=== PATIENT | male | born 1995 | race Caucasian/White ===

== ENCOUNTER 2017-07-11 19:52 | Emergency (ER) | payer OTHER ==
[~2017-07-11] VITALS: Ht 200.7 cm; Wt 120.2 kg
[2017-07-11 20:04] VITALS: BP 135/70
[2017-07-11] MEDS ORDERED: HYDROcodone/APAP 10/325 1 TAB TABLET PO ONE (20:15)
[2017-07-11] MEDS ORDERED: IBUP800T19 PO (20:45)
[2017-07-11] MEDS ORDERED: HYDR-971 PO (20:45)
--- NOTE | 2017-07-11 20:46 | PHYS DOC ---
Past History Past Medical History: No Pertinent History Past Surgical History: No Surgical History Alcohol Use: Occasionally Drug Use: None Adult General Chief Complaint Chief Complaint: LOWEREXTREMITY INJURY HPI HPI Patient is a 21-year-old male who presents with family after a right ankle injury playing football. Patient denies other injury. He denies previous right ankle injury or problem. His ankle was rolled and then another player stepped on it. He presents with his own crutches. Review of Systems Review of Systems Musculoskeletal: Denies injury other than the right ankle Current Medications Current Medications Current Medications Medications (Trade) Dose Ordered Sig/[place] Start Time Stop Time Status Last Admin Dose Admin Acetaminophen/ Hydrocodone Bitart (Lortab 10/325) 1 tab 1X ONCE 07/11/17 20:15 07/11/17 20:35 DC 07/11/17 20:13 1 TAB Allergies Allergies Allergies Coded Allergies Type Severity Reaction Last Updated Verified levofloxacin Allergy Intermediate 07/11/17 Yes Physical Exam Physical Exam Constitutional: Well developed, well nourished, no acute distress, non-toxic appearance. [] HENT: Normocephalic, atraumatic, bilateral external ears normal, nose normal. [ ] Eyes: conjunctiva normal, no discharge. [] Neck: Normal range of motion,no stridor. [] Skin: Warm, dry, no erythema, no rash. [] Extremities: Right lower: Knee without deformity, swelling, or tenderness. No tenderness of the proximal fibula. Significant swelling of the right ankle, especially the lateral aspect. There is tenderness over the lateral aspect of the distal fibula. There is some swelling of the anterior lateral midfoot. Toes are unremarkable. Neurologic: Alert and oriented X 3, normal motor function, no focal deficits noted. [] Current Patient Data Vital Signs Vital Signs Date Time Temp Pulse Resp B/P (MAP) Pulse Ox O2 Delivery O2 Flow Rate FiO2 07/11/17 20:04 98.2 96 22 99 Room Air EKG EKG [] Radiology/Procedures Radiology/Procedures Three-view x-ray of the right ankle and three-view x-ray of the right foot read by me. No acute bony abnormality.[] Course & Med Decision Making Course & Med Decision Making Pertinent Labs and Imaging studies reviewed. (See chart for details) 21-year-old male presents with a right ankle injury which occurred while playing football. No fractures on the x-ray. He was treated with Robin wrap, air splint. He has crutches already. He has follow-up in place with the team doctor. See instructions for plan. [] Dragon Disclaimer Dragon Disclaimer This chart was dictated in whole or in part using Voice Recognition software in a busy, high-work load, and often noisy Emergency Department environment. It may contain unintended and wholly unrecognized errors or omissions. Departure Departure: Impression: Primary Impression: Right ankle sprain Disposition: HOME, SELF-CARE Condition: STABLE Referrals: STEPHANIE GIBSON MD (PCP) Patient Instructions: Ankle Sprain, [id number] Additional Instructions: For 2-3 days, as much as possible, elevate, ice. Keep it wrapped with an Robin wrap for compression, just snug, not too tight. Use crutches and stay off of it for 2 or 3 days, then as tolerated or as recommended by Dr. Cordoba. Ibuprofen 800 mg every 6-8 hours around the clock for pain and swelling. If needed, hydrocodone for more severe pain. You may combine this with ibuprofen. Follow-up with Dr. Cordoba early next week. Scripts Hydrocodone Bit/Acetaminophen (NORCO 5-325 TABLET) 1 Each Tablet 1-2 TAB PO PRN Q6HRS Y for PAIN, #10 TAB 0 Refills Prov: JESSICA MENSAH MD 07/11/17 Ibuprofen (IBUPROFEN) 800 Mg Tablet 1 TAB PO TID for ankle sprain, #30 TAB Prov: JESSICA MENSAH MD 07/11/17 JESSICA MENSAH MD Jul 11, 2017 20:45
--- NOTE | 2017-07-12 08:49 | RAD ---
Examination: 3 views of the right foot History: History of old right ankle and foot Comparison: None available Findings: The alignment of the tarsal bones grossly appears unremarkable. The metatarsophalangeal joints, tarsometatarsal joints, tarsal joints joint grossly appears unremarkable. Impression No acute osseous findings.
--- NOTE | 2017-07-12 08:51 | RAD ---
Examination: 3 views of the right ankle History: History of right ankle injury Comparison: None available Findings: The alignment of the ankle mortise grossly appears unremarkable. There is no acute fracture identified. Moderate soft tissue swelling identified lateral to the lateral malleolus. Probable mild ankle joint effusion. Impression: 1. No acute osseous findings. 2. Mild soft tissue swelling identified lateral to the lateral malleolus likely secondary to soft tissue injury. 3. Probable mild ankle joint effusion.
== END 2017-07-11 20:50 | disposition home or self-care (01) ==
LOC: ER 19:52
DX: S93.401A Sprain of unspecified ligament of right ankle, initial encounter (principal); Z88.1 Allergy status to other antibiotic agents; X58.XXXA Exposure to other specified factors, initial encounter; Y93.61 Activity, american tackle football; Y99.8 Other external cause status; Y92.89 Other specified places as the place of occurrence of the external cause
CPT/HCPCS: 73610; 73630; 99284